=== PATIENT | male | born 1965 | race Caucasian/White ===

== ENCOUNTER 2017-01-28 03:59 | Emergency (ER) | payer SELFPAY ==
[~2017-01-28] VITALS: Ht 182.9 cm; Wt 60.0 kg
[2017-01-28 04:00] VITALS: BP 142/79; PULSE 102; RESP 16; TEMP 98.4; O2SAT 96
[2017-01-28] MEDS ORDERED: VENTAER INH (04:13)
--- NOTE | 2017-01-28 04:22 | PD ---
HPI Chief Complaint: Respiratory Symptoms Time Seen by Provider: 04:19 Travel History International Travel<30 days: No Contact w/Intl Traveler<30days: No Traveled to known affect area: No History of Present Illness HPI Patient comes in complaining of shortness of breath in the mornings when he wakes up. Patient states he has a history of COPD and his symptoms improved with his Ventolin inhaler. Patient states he also has a few episodes throughout the day that improved with his Ventolin inhaler. Symptoms are made worse with the heat. Patient reports occasional nonproductive cough with this. Denies any chest pain, fevers, back pain, all pain, nausea, vomiting, diarrhea , or weight loss. Patient feels that his symptoms got slightly worse over the past month. PFSH Past Medical History COPD: Yes Social History Tobacco Use: Yes Allergies-Medications (Allergen,Severity, Reaction): Coded Allergies: No Known Allergies (Unverified , 01/28/17) Reported Meds & Prescriptions Reported Meds & Active Scripts Active Medrol Dosepak (Methylprednisolone) 4 Mg Dspk 4 Mg PO DIRECTED Per Pharmacist direction Reported Ventolin Hfa 18 GM Inh (Albuterol Sulfate) 90 Mcg/Act Aer 2 Puff INH Q4-6H PRN Review of Systems Except as stated in HPI: all other systems reviewed are Neg Physical Exam Narrative GENERAL: Well-developed, well nourished, in no acute distress, and non-ill appearing. SKIN: Focused skin assessment warm and dry. HEAD: Atraumatic. Normocephalic. EYES: Pupils equal and round. EOMI. No scleral icterus. No injection or drainage. ENT: No nasal bleeding or discharge. Mucous membranes pink and moist. NECK: Trachea midline. Supple. No nuclear rigidity. CARDIOVASCULAR: Regular rate and rhythm. No murmur appreciated. RESPIRATORY: No accessory muscle use. No respiratory distress. Decreased breath sounds throughout. MUSCULOSKELETAL: No obvious deformities. No clubbing. No cyanosis. No edema. Full range of motion. NEUROLOGICAL: Awake and alert. No obvious cranial nerve deficits. Motor grossly within normal limits. Normal speech. PSYCHIATRIC: Appropriate mood and affect; insight and judgment normal. Data Data Last Documented VS Vital Signs Date Time Temp Pulse Resp B/P Pulse Ox O2 Delivery O2 Flow Rate FiO2 01/28/17 04:00 98.4 102 16 142/79 96 Room Air Orders Albuterol-Ipratropium Neb (Duoneb Neb) (01/28/17 04:30) Prednisone (Deltasone) (01/28/17 04:30) Chest, Single Ap (01/28/17 ) [facility] Medical Decision Making Medical Screen Exam Complete: Yes Emergency Medical Condition: Yes Interpretation(s) Chest x-ray read by the radiologist shows: No acute cardiopulmonary process. Differential Diagnosis Pneumonia, COPD exacerbation, CHF, other Narrative Course The patient looks great and improved well with Nebulizer and steroid medication. The patient is moving air well and in no distress nor significant dyspnea, and oxygen saturation is within normal limits. There is no clinical or radiological evidence to suggest pneumonia at this time. Diagnosis, plan of care and management were discussed with the patient who agreed with plan and feels better and ready to go home. The patient was instructed to return if worsen, worsening difficulty breathing or wheezing, persistent fever, chest pain or as needed. Patient in no obvious distress upon re-evaluation. All pertinent Radiology result(s) discussed with patient. Patient reports he has enough of his Ventolin inhaler and does not need a refill at this time. Patient was asked if they wanted to speak to my attending, which the patient did not wish to do at this time. Any questions/concerns in reference to patient diagnosis/condition discussed and clarified prior to patient's discharge. Reinforced sheer importance of close follow up with patient's primary physician or primary care clinic. Instructed patient to return to ED immediately, if symptoms return/ worsen. Pt showed understanding of above instructions. Further instructions and recommendations were detailed in discharge paperwork. Pt ambulated without difficulty out of ED at discharge. Diagnosis Primary Impression: COPD exacerbation Referrals: [facility] in Medicine Patient Instructions: COPD (Chronic Obstructive Pulmonary Disease) (ED), General Instructions Additional Instructions: Follow-up with your primary care physician and/or power regulator in 3-5 days for evaluation. Take all medication as prescribed. Return to the emergency department if symptoms get worse. Med/Other Pt SpecificInfo: Prescription(s) given Scripts Methylprednisolone Dosepak (Medrol Dosepak)4 Mg Dspk4 Mg PO DIRECTED #1 DSPK Ref 0 Per Pharmacist direction Prov:Jens Aragon MD 01/28/17 Disposition: 01 DISCHARGE HOME Condition: Stable Rojas Grijalva D PA Jan 28, 2017 04:22
[2017-01-28] MEDS ORDERED: RESP: ALBUTEROL 2.5 MG/IPRATROPIUM 0.5 MG NEB (SCH) INH ONE (04:30)
[2017-01-28] MEDS ORDERED: predniSONE 20 MG TAB PO ONE (04:30)
--- NOTE | 2017-01-28 04:54 | RADRPT ---
EXAM DATE/TIME: 01/28/2017 04:14 [place] COMPARISON: No previous studies available for comparison. INDICATIONS : Shortness of breath x 1 week. MEDICAL HISTORY : Chronic obstructive pulmonary disease. SURGICAL HISTORY : None. ENCOUNTER: Initial ACUITY: 1 week PAIN SCORE: 6/10 LOCATION: Bilateral chest FINDINGS: A single view of the chest demonstrates the lungs to be symmetrically aerated without evidence of mas s, infiltrate or effusion. The cardiomediastinal contours are unremarkable. Osseous structures are intact. CONCLUSION: No acute cardiopulmonary process. Chad Quinonez MD on January 28, 2017 at 4:52 Board Certified Radiologist. This report was verified electronically.
[2017-01-28] MEDS ORDERED: MEDR4PAK PO (05:07)
== END 2017-01-28 05:56 | disposition home or self-care (01) ==
LOC: NEPD 03:59
DX: J44.1 Chronic obstructive pulmonary disease with (acute) exacerbation (principal)
CPT/HCPCS: 71010; 94664; 99283; J7512